=== PATIENT | female | born 1950 ===

== ENCOUNTER 2018-08-13 08:17 | Outpatient (RCR) | payer MEDICARE, OTHER, SELFPAY ==
[2018-08-06 08:39] LABS: Abs Immature Grans 0.01 k/cumm (0.0-0.09); Absolute Basophil Count 0.01 k/cumm (0.0-0.2); Absolute Lymphocyte Count 0.24 k/cumm (1.2-3.4); Absolute Monocyte Count 0.39 k/cumm (0.11-0.7); Absolute Neutrophil Count 4.49 k/cumm (1.2-6.7); Basophils % 0.2; Eosinophils % 1.9; HCT 38.2 % (36.0-46.0); HGB 12.9 g/dL (12.0-15.5); Immature Grans % 0.2; Lymphocytes % 4.6; Mean Corp. HGB Concentration 33.8 g/dL (32.0-36.0); Mean Corpuscular Hemoglobin 29.1 pg (27.0-33.0); Mean Corpuscular Volume 86.2 fL (80-95); Mean Platelet Volume 10.3 fL (8.0-11.0); Monocytes % 7.4; Neutrophils % 85.7; Platelet Count 230 x1000/uL (130-400); RBC 4.43 m/cumm (4.00-5.20); White Blood Cell Count 5.24 k/cumm (4.4-10.8)
[2018-08-06] MEDS: Normal Saline Flush 10 ML SYR IVP (08:40)
[2018-08-06 08:58] LABS: ALT 26 U/L (12-78); AST 15 U/L (15-37); Albumin 3.5 g/dL (3.4-5.0); Alkaline Phosphatase 70 U/L (46-116); Anion Gap 8.4 mmol/L (3-11); BUN 26 mg/dL (7-18); Bilirubin, Total 0.4 mg/dL (0.2-1.0); CO2 29.6 mmol/L (21.0-32.0); CREATININE 0.85 mg/dL (0.55-1.02); Calcium 8.9 mg/dL (8.5-10.1); Chloride 103 mmol/L (98-107); Glucose 86 mg/dL (70-100); LDH 141 U/L (81-234); Potassium 3.9 mmol/L (3.5-5.1); Sodium 141 mmol/L (136-145); Total Protein 7.2 g/dL (6.4-8.2)
[2018-08-13 08:50] LABS: Abs Immature Grans 0.01 k/cumm (0.0-0.09); Absolute Basophil Count 0.03 k/cumm (0.0-0.2); Absolute Eosinophil Count 0.07 k/cumm (0.0-0.7); Absolute Lymphocyte Count 0.29 k/cumm (1.2-3.4); Absolute Monocyte Count 0.55 k/cumm (0.11-0.7); Absolute Neutrophil Count 5.43 k/cumm (1.2-6.7); Basophils % 0.5; Eosinophils % 1.1; HCT 36.6 % (36.0-46.0); HGB 12.3 g/dL (12.0-15.5); Immature Grans % 0.2; Lymphocytes % 4.5; Mean Corp. HGB Concentration 33.6 g/dL (32.0-36.0); Mean Corpuscular Hemoglobin 29.1 pg (27.0-33.0); Mean Corpuscular Volume 86.7 fL (80-95); Mean Platelet Volume 10.4 fL (8.0-11.0); Monocytes % 8.6; Neutrophils % 85.1; Platelet Count 266 x1000/uL (130-400); RBC 4.22 m/cumm (4.00-5.20); RBC Distribution Width 14.2 % (11.7-14.6); White Blood Cell Count 6.38 k/cumm (4.4-10.8)
[2018-08-13 08:58] LABS: ALT 22 U/L (12-78); AST 14 U/L (15-37); Albumin 3.9 g/dL (3.4-5.0); Alkaline Phosphatase 69 U/L (46-116); Anion Gap 8.5 mmol/L (3-11); BUN 23 mg/dL (7-18); Bilirubin, Total 0.5 mg/dL (0.2-1.0); CO2 26.5 mmol/L (21.0-32.0); CREATININE 0.76 mg/dL (0.55-1.02); Calcium 9.1 mg/dL (8.5-10.1); Chloride 104 mmol/L (98-107); Glucose 94 mg/dL (70-100); LDH 139 U/L (81-234); Potassium 4.1 mmol/L (3.5-5.1); Sodium 139 mmol/L (136-145); Total Protein 7.2 g/dL (6.4-8.2)
[2018-08-13] MEDS: Normal Saline Flush 10 ML SYR IVP (09:53)
== END 2018-08-14 23:59 | disposition home or self-care (01) ==
LOC: INF 08:17
PROVIDERS: Visit Provider Nurse Practitioner Adult Health
DX: C82.31 Follicular lymphoma grade IIIa, lymph nodes of head, face, and neck (principal); Z45.2 Encounter for adjustment and management of vascular access device
CPT/HCPCS: 36591; 80053; 83615; 85025

== ENCOUNTER 2018-08-27 02:37 | Outpatient (RCR) | payer MEDICARE, OTHER, SELFPAY ==
[2018-08-27] MEDS: Normal Saline Flush 10 ML SYR IVP (08:53)
[2018-08-27 08:58] LABS: Abs Immature Grans 0.01 k/cumm (0.0-0.09); Absolute Basophil Count 0.05 k/cumm (0.0-0.2); Absolute Eosinophil Count 0.12 k/cumm (0.0-0.7); Absolute Lymphocyte Count 0.36 k/cumm (1.2-3.4); Absolute Monocyte Count 0.47 k/cumm (0.11-0.7); Absolute Neutrophil Count 3.99 k/cumm (1.2-6.7); Eosinophils % 2.4; Immature Grans % 0.2; Lymphocytes % 7.2; Mean Corp. HGB Concentration 34.3 g/dL (32.0-36.0); Mean Corpuscular Volume 87.5 fL (80-95); Mean Platelet Volume 10.6 fL (8.0-11.0); Monocytes % 9.4; Neutrophils % 79.8; Platelet Count 182 x1000/uL (130-400); RBC Distribution Width 14.1 % (11.7-14.6)
[2018-08-27 09:10] LABS: ALT 23 U/L (12-78); AST 17 U/L (15-37); Albumin 3.9 g/dL (3.4-5.0); Alkaline Phosphatase 69 U/L (46-116); Anion Gap 8.4 mmol/L (3-11); BUN 22 mg/dL (7-18); Bilirubin, Total 0.5 mg/dL (0.2-1.0); CO2 27.6 mmol/L (21.0-32.0); CREATININE 0.78 mg/dL (0.55-1.02); Chloride 105 mmol/L (98-107); Glucose 92 mg/dL (70-100); Potassium 3.9 mmol/L (3.5-5.1); Sodium 141 mmol/L (136-145); Total Protein 6.9 g/dL (6.4-8.2)
== END 2018-09-14 23:59 | disposition home or self-care (01) ==
LOC: INF 02:37
PROVIDERS: Visit Provider Nurse Practitioner Adult Health
DX: C82.31 Follicular lymphoma grade IIIa, lymph nodes of head, face, and neck (principal); Z45.2 Encounter for adjustment and management of vascular access device
CPT/HCPCS: 36591; 80053; 85025

== ENCOUNTER 2018-09-24 00:45 | Outpatient (RCR) | payer MEDICARE, OTHER, SELFPAY ==
[2018-09-24] MEDS: Normal Saline Flush 10 ML SYR IVP (08:15)
[2018-09-24 09:01] LABS: Abs Immature Grans 0.01 k/cumm (0.0-0.09); Absolute Basophil Count 0.05 k/cumm (0.0-0.2); Absolute Eosinophil Count 0.07 k/cumm (0.0-0.7); Absolute Lymphocyte Count 0.41 k/cumm (1.2-3.4); Absolute Monocyte Count 0.65 k/cumm (0.11-0.7); Eosinophils % 1.4; HCT 34.8 % (36.0-46.0); HGB 11.8 g/dL (12.0-15.5); Immature Grans % 0.2; Lymphocytes % 8.4; Mean Corp. HGB Concentration 33.9 g/dL (32.0-36.0); Mean Corpuscular Hemoglobin 29.9 pg (27.0-33.0); Mean Corpuscular Volume 88.3 fL (80-95); Mean Platelet Volume 10.1 fL (8.0-11.0); Monocytes % 13.3; Neutrophils % 75.7; Platelet Count 218 x1000/uL (130-400); RBC 3.94 m/cumm (4.00-5.20); RBC Distribution Width 14.3 % (11.7-14.6); White Blood Cell Count 4.89 k/cumm (4.4-10.8)
[2018-09-24 09:25] LABS: ALT 23 U/L (12-78); AST 15 U/L (15-37); Albumin 3.8 g/dL (3.4-5.0); Alkaline Phosphatase 73 U/L (46-116); Anion Gap 8.9 mmol/L (3-11); BUN 20 mg/dL (7-18); Bilirubin, Total 0.4 mg/dL (0.2-1.0); CO2 27.1 mmol/L (21.0-32.0); CREATININE 0.71 mg/dL (0.55-1.02); Calcium 8.6 mg/dL (8.5-10.1); Chloride 104 mmol/L (98-107); Glucose 89 mg/dL (70-100); LDH 147 U/L (81-234); Potassium 3.8 mmol/L (3.5-5.1); Sodium 140 mmol/L (136-145); TSH 5.47 uIU/mL (0.358-3.74); Total Protein 6.8 g/dL (6.4-8.2)
[2018-09-24 09:36] LABS: T4 7.1 ug/dL (4.5-12.5)
[2018-09-24 20:55] LABS: T3, Total 127 ng/dl (97-169)
== END 2018-10-14 23:59 | disposition home or self-care (01) ==
LOC: INF 00:45
PROVIDERS: Nurse Practitioner Family; Visit Provider Nurse Practitioner Adult Health
DX: C82.31 Follicular lymphoma grade IIIa, lymph nodes of head, face, and neck (principal); R93.89 Abnormal findings on diagnostic imaging of other specified body structures; Z45.2 Encounter for adjustment and management of vascular access device
CPT/HCPCS: 36591; 80053; 83615; 84436; 84443; 84480; 85025

== ENCOUNTER 2018-10-22 08:04 | Outpatient (RCR) | payer MEDICARE, OTHER, SELFPAY ==
[2018-10-22 08:52] LABS: ALT 30 U/L (12-78); AST 13 U/L (15-37); Abs Immature Grans 0.03 k/cumm (0.0-0.09); Absolute Basophil Count 0.07 k/cumm (0.0-0.2); Absolute Lymphocyte Count 0.48 k/cumm (1.2-3.4); Absolute Monocyte Count 0.67 k/cumm (0.11-0.7); Absolute Neutrophil Count 4.18 k/cumm (1.2-6.7); Albumin 3.8 g/dL (3.4-5.0); Alkaline Phosphatase 75 U/L (46-116); Anion Gap 8.4 mmol/L (3-11); BUN 22 mg/dL (7-18); Basophils % 1.3; Bilirubin, Total 0.3 mg/dL (0.2-1.0); CO2 26.6 mmol/L (21.0-32.0); CREATININE 0.78 mg/dL (0.55-1.02); Calcium 8.8 mg/dL (8.5-10.1); Chloride 104 mmol/L (98-107); Eosinophils % 1.8; Glucose 90 mg/dL (70-100); HCT 35.9 % (36.0-46.0); Immature Grans % 0.5; LDH 152 U/L (81-234); Lymphocytes % 8.7; Mean Corp. HGB Concentration 33.4 g/dL (32.0-36.0); Mean Corpuscular Hemoglobin 29.3 pg (27.0-33.0); Mean Corpuscular Volume 87.8 fL (80-95); Mean Platelet Volume 10.2 fL (8.0-11.0); Monocytes % 12.1; Neutrophils % 75.6; Platelet Count 252 x1000/uL (130-400); RBC 4.09 m/cumm (4.00-5.20); RBC Distribution Width 13.7 % (11.7-14.6); Sodium 139 mmol/L (136-145); Total Protein 7.1 g/dL (6.4-8.2); White Blood Cell Count 5.53 k/cumm (4.4-10.8)
== END 2018-11-14 23:59 | disposition home or self-care (01) ==
LOC: INF 08:04
PROVIDERS: Visit Provider Nurse Practitioner Adult Health
DX: C82.31 Follicular lymphoma grade IIIa, lymph nodes of head, face, and neck (principal); Z45.2 Encounter for adjustment and management of vascular access device
CPT/HCPCS: 36591; 80053; 83615; 85025